=== PATIENT | male | born 1955 | race Caucasian/White ===

== ENCOUNTER 2018-03-10 07:19 | Inpatient (IN) | payer OTHER ==
[~2018-03-10] VITALS: Ht 193 cm; Wt 86.2 kg
--- NOTE | ~2018-03-10 | O ---
[facility] [place] [address] OPERATIVE REPORT Name: ELSI MARQUES Room #: 357-P [facility] IN M.R.#: [id number] Admission: 03/10/18 Attend Phys: Martina Haynes MD Discharge: Date of : 53 Report #: [id number] THIS REPORT FOR: //name// CC: Devyn Haynes DATE OF SERVICE: 03/13/2018 PREOPERATIVE DIAGNOSIS: Right foot metatarsal osteomyelitis. POSTOPERATIVE DIAGNOSIS: Right foot metatarsal osteomyelitis. PROCEDURE: Revision, right transmetatarsal amputation. SURGEON: Zechariah Fowler M.D. SOCIETY EDITOR: Deepa Jacobson PA-C. ANESTHESIA: LMA. TOURNIQUET TIME: 26 minutes. ESTIMATED BLOOD LOSS: 25 mL. COMPLICATIONS: None. SPECIMENS: None. CONDITION UPON LEAVING THE OPERATING ROOM: Stable. INDICATIONS FOR PROCEDURE: The patient is a 62-year-old gentleman who has had a previous right transmetatarsal amputation in April 2017. He had opening of the wound, has not been getting wound care since that time. This has not been improving and presented to our hospital actually in septic shock and was found to have osteomyelitis of the remainder of the metatarsals on MRI scan. After discussion with him including my recommendation for below-knee amputation, he elected for revision of the transmetatarsal amputation and hopes that this would heal without higher level amputation. DESCRIPTION OF PROCEDURE: Risks, benefits, alternatives and complications were discussed in detail with the patient including but not limited to risk of continued infection, bleeding, need for higher level amputation. Informed consent was obtained from the patient. The right foot was appropriately marked in the preoperative holding area. IV Zosyn was given for preoperative antibiotics. He was brought to the operating room and placed in the supine position on the operating room table. LMA anesthesia was induced without [facility] [address] [place] [address] OPERATIVE REPORT Name: ELSI MARQUES Room #: 357-P [facility] IN ..#: [id number] Admission: 03/10/18 Attend Phys: Martina Haynes MD Discharge: Date of : 53 Report #: [id number] complication. Tourniquet was placed on the right thigh. Right lower extremity was prepped and draped in normal sterile fashion. Timeout was performed properly identifying the patient, procedure as well as instrumentation. All in the operating room were in agreement. Right lower extremity was elevated, tourniquet inflated. Tourniquet time was 26 minutes. There essentially was a large covering of granulation tissue over the palpable remainder of the metatarsals. This was dissected out with a combination of Bovie cautery and sharply with #10 blade. The open incision was extended medially and laterally in a fish-mouth type incision in order to gain mobilization of the skin flap. After dissecting circumferentially around the metatarsals, the skin was held back and the metatarsals were amputated at a higher level, approximately 2 inches from the previous amputation level with a sagittal saw. This was removed. The wound was then thoroughly irrigated with normal saline. This left plenty of skin tissue and soft tissue for coverage of the end of what remained of the metatarsals. The skin edges were trimmed back sharply with 10 blade to bleeding edges. Tourniquet was deflated and hemostasis was obtained. A Hemovac drain was placed deep along the ends of the metatarsals and the skin was closed with 2-0 Vicryl and 3-0 nylon. Soft dressing of Adaptic, 4 x 4, Webril, Juan A wrap were applied. The patient tolerated this procedure well and went to recovery room under care of anesthesia postoperatively. <ELECTRONICALLY SIGNED> By: Zechariah Fowler MD 03/15/18 1507 [id number] Zechariah Fowler MD /nt
--- NOTE | ~2018-03-10 | HC ---
[facility] [place] [address] CONSULTATION Name: ELSI MAQRUES Room #: 357-P ADM IN ..#: [id number] Admission: 03/10/18 Attend Phys: Martina Haynes MD Discharge: Date of : 53 Report #: [id number] THIS REPORT FOR: //name// CC: Devyn Haynes DATE OF SERVICE: 03/11/2018 CHIEF COMPLAINT: Right foot infection. HISTORY OF PRESENT ILLNESS: This is a 62-year-old male patient admitted to the hospital with an infection involving his right foot. 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 He developed infection in his toes and underwent a transmetatarsal amputation in 12/2016. 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 He was seen in the Emergency Department, was hypotensive and admitted for further evaluation and treatment. PAST MEDICAL HISTORY: Positive for history of a right foot infection, history of septic shock, previous laminectomy, left shoulder surgery. SOCIAL HISTORY: The patient admits to frequent alcohol use, some history of previous drug use, which he has discontinued and does smoke. FAMILY HISTORY: Noncontributory. REVIEW OF SYSTEMS: CONSTITUTIONAL: The patient denies fever, chills or weight loss currently. ENT: The patient denies earache, nasal drainage, sore throat. CARDIOVASCULAR: The patient denies chest pain, palpitation or diaphoresis. PULMONARY: The patient denies cough, shortness of breath. GASTROINTESTINAL: The patient denies nausea, vomiting, diarrhea or abdominal pain. ORTHOPEDIC: The patient complains of some drainage from his right foot. Other systems in a 14-point review of systems are negative. PHYSICAL EXAMINATION: VITAL SIGNS: At this time include pulse 51, respiratory rate of 19, blood pressure 125/70, temperature 98.2. GENERAL: This is a chronically ill-appearing male patient who appears to be in minimal distress. HEENT: Head normocephalic. Nose and throat are clear. NECK: Supple. LUNGS: Clear. HEART: Regular rhythm. ABDOMEN: Bowel sounds present. [facility] [address] [place] [address] CONSULTATION Name: ELSI MARQUES Room #: 357-P ADM IN .R.#: [id number] Admission: 03/10/18 Attend Phys: Martina Haynes MD Discharge: Date of : 53 Report #: [id number] EXTREMITIES: Lower extremities demonstrate palpable, but somewhat diminished distal pulses. He has an open transmetatarsal amputation of the right foot. The base is clean and granulating. However, there is drainage. There is edema of the foot and bogginess to palpation. NEUROLOGIC: The patient is alert, does move all 4 extremities spontaneously. LABORATORY DATA: Includes sodium 141, potassium 3.6, chloride 111, CO2 of 20, BUN 10, creatinine 0.8, glucose of 92. CRP is markedly elevated at 72.6, albumin 3.7. White blood cell count 6.9, hemoglobin 10.9. Sed rate is 60. Arterial Doppler demonstrates atherosclerotic disease, but no evidence of high grade stenosis. MRI of the foot is ordered and pending. X-ray demonstrates postoperative changes from recent mid foot amputation, mild irregularity at the distal stump of the first, second and third metatarsals that is compatible with healing; however, cannot exclude osteomyelitis. CLINICAL IMPRESSION: Right foot infection with previous transmetatarsal amputation and possible underlying osteomyelitis. RECOMMENDATIONS: We will check an MRI. He has been started on intravenous antibiotic therapy empirically pending cultures. He very well may require surgical bony debridement. Recommend aggressive nutritional support to maximize wound healing. I think once we have evaluated for the possibility of osteomyelitis and considered surgical intervention, he may benefit from tissue substitute over the open portion of his foot. He will need protection and offloading along the way. I appreciate being asked to see him in consultation. <ELECTRONICALLY SIGNED> By: Reza Adam MD 03/12/18 1552 [id number] Reza Adam MD /nt
--- NOTE | ~2018-03-10 | HC ---
[facility] [place] [address] CONSULTATION Name: ELSI MARQUES Room #: 357-P ADM IN M.R.#: [id number] Admission: 03/10/18 Attend Phys: Martina Haynes MD Discharge: Date of : 53 Report #: [id number] THIS REPORT FOR: //name// CC: Devyn Haynes DATE OF SERVICE: 03/12/2018 REASON FOR CONSULTATION: Right foot osteomyelitis. HISTORY OF PRESENT ILLNESS: The patient is a 62-year-old gentleman who has had osteomyelitis of his right foot in the past. He had a transmetatarsal amputation in last April and has had issues with his wound since that time. He has been on, on and off, antibiotics and presented to the hospital here with concerns for sepsis. Wound care had been consulted and they have asked us to evaluate for possible higher level amputation. PAST MEDICAL HISTORY: Significant for right foot infection, septic shock, laminectomy and left shoulder surgery. SOCIAL HISTORY: Drinks alcohol frequently, some history of previous drug abuse. He does smoke. CURRENT MEDICATIONS: Have been reviewed and on the chart. PHYSICAL EXAMINATION: Examination of the right foot shows him to have a transmetatarsal amputation with an open wound on the distal stump. There is no significant drainage from this; however, there is a large amount of granulation tissue. There is no exposed bone. IMAGING: X-ray and MRI scan have been reviewed and shows osteomyelitis of the remainder of the metatarsal bones that are left in his amputation stump. ASSESSMENT: Right foot transmetatarsal amputation with residual osteomyelitis. PLAN: I had a long discussion today with the patient regarding treatment options. My recommendation for him is a below-knee amputation as I think this would give him the best chance for healing and function. However, he is interested in one more chance at salvage of his foot or the remainder of his foot. He is asking for a resection of the remainder of the metatarsals and an attempt at primary closure of the wound. I discussed with him that I do not think that this will be successful and he will have continued wound problems from this, but he is insistent that we try this treatment first. I have put him on the operating room schedule for tomorrow morning at 8:30 for a revision of this transmetatarsal amputation with resection of the remainder of his metatarsals in an attempt at primary wound closure. We discussed the fact that [address] [address] CONSULTATION Name: ELSI MARQUES Clara Room #: 357-P [facility] IN .R.#: [id number] Admission: 03/10/18 Attend Phys: Martina Haynes MD Discharge: Date of : 53 Report #: [id number] we may need to put a wound VAC on this to aid in healing and he has understanding of this. We will make him n.p.o. after midnight. He is understanding and wished to proceed. Thank you for allowing us to participate in the care of the patient. <ELECTRONICALLY SIGNED> By: Zechariah Fowler MD 03/15/18 1507 [id number] [id number] Zechariah Fowler MD /nt
[~2018-03-10 07:19] MED LIST: VALIUM2 MG PO; ZOFRAN ODT4 MG PO
[2018-03-10 07:23] VITALS: BP 87/45
[2018-03-10 08:27] LABS: ABSOLUTE NEUTROPHILS 7.3 thou/uL (1.4-8.2); BASOPHILS 1.2 % (0.0-2.0); EOSINOPHILS 4.8 % (0.0-3.0); HEMATOCRIT 40.1 % (42.0-52.0); HEMOGLOBIN 13.6 gm/dL (14.0-18.0); LYMPHOCYTES 13.2 % (24.0-44.0); MCH 27.7 pg (26.0-34.0); MCHC 33.9 g/dL (28.0-37.0); MCV 81.7 fL (80.0-100.0); PLATELET COUNT 440 thou/uL (150-400); POLYS 72.8 % (36.0-66.0); RBC 4.91 mil/uL (4.50-6.00); RDW 16.6 % (10.5-14.5)
[2018-03-10 08:35] LABS: CALCIUM 9.2 mg/dL (8.5-10.1); POTASSIUM 3.3 mmol/L (3.5-5.1)
[2018-03-10 08:41] LABS: ALBUMIN 3.7 g/dL (3.4-5.0); DIRECT BILIRUBIN 0.2 mg/dL (<0.1-0.3); TOTAL BILIRUBIN 0.5 mg/dL (<0.1-1.0); TOTAL PROTEIN 8.6 g/dL (6.4-8.2)
[2018-03-10] MEDS ORDERED: ALEVE220 MG PO (10:37)
[2018-03-10 14:14] LABS: URINE BILIRUBIN NEGATIVE (Negative); URINE BLOOD NEGATIVE (Negative); URINE CLARITY CLEAR; URINE COLOR YELLOW; URINE GLUCOSE-RANDOM* NEGATIVE (Negative); URINE KETONES NEGATIVE (Negative); URINE LEUKOCYTES NEGATIVE (Negative); URINE NITRITE NEGATIVE (Negative); URINE PROTEIN (DIPSTICK) NEGATIVE (Negative); URINE SPECIFIC GRAVITY <= 1.005 (1.005-1.035); URINE UROBILINOGEN 0.2 E.U./dl (0.2-1.0)
[2018-03-10 15:03] VITALS: BP 105/66
[2018-03-10 16:15] VITALS: BP 105/61
[2018-03-10 16:41] VITALS: BP 100/56
[2018-03-10 19:34] VITALS: BP 108/65
[2018-03-11 04:44] VITALS: BP 74/47
[2018-03-11 05:47] LABS: ABSOLUTE NEUTROPHILS 4.1 thou/uL (1.4-8.2); BASOPHILS 1.6 % (0.0-2.0); EOSINOPHILS 8.1 % (0.0-3.0); HEMATOCRIT 33.3 % (42.0-52.0); LYMPHOCYTES 20.7 % (24.0-44.0); MCH 27.2 pg (26.0-34.0); MCHC 32.8 g/dL (28.0-37.0); MONOCYTES 9.9 % (1.0-8.0); POLYS 59.7 % (36.0-66.0); RBC 4.01 mil/uL (4.50-6.00); RDW 16.7 % (10.5-14.5); WBC 6.9 thou/uL (4.0-11.0)
[2018-03-11 05:56] LABS: HEMOGLOBIN 10.9 gm/dL (14.0-18.0); PLATELET COUNT 265 thou/uL (150-400)
[2018-03-11 06:04] LABS: CALCIUM 8.3 mg/dL (8.5-10.1); CREATININE 0.8 mg/dL (0.7-1.3); POTASSIUM 3.6 mmol/L (3.5-5.1)
[2018-03-11 06:41] VITALS: BP 111/70
[2018-03-11 07:22] VITALS: BP 104/57
[2018-03-11 11:08] VITALS: BP 102/60
[2018-03-11 15:21] VITALS: BP 107/69
[2018-03-11 19:28] VITALS: BP 125/73
[2018-03-12 04:00] VITALS: BP 123/76
[2018-03-12 07:08] VITALS: BP 121/73
[2018-03-12 12:05] VITALS: BP 137/82
[2018-03-12 15:13] VITALS: BP 142/95
[2018-03-12 19:22] VITALS: BP 128/76
[2018-03-13] VITALS (9 sets, daily range): BP systolic 97–130; BP diastolic 64–87
[2018-03-13 23:28] LABS: HEMATOCRIT 35.3 % (42.0-52.0); HEMOGLOBIN 11.6 gm/dL (14.0-18.0)
[2018-03-14 03:45] VITALS: BP 110/64
[2018-03-14 05:23] LABS: HEMATOCRIT 33.8 % (42.0-52.0); MCH 26.9 pg (26.0-34.0); MCHC 32.4 g/dL (28.0-37.0); MCV 83.1 fL (80.0-100.0); RBC 4.07 mil/uL (4.50-6.00); RDW 16.4 % (10.5-14.5); WBC 8.7 thou/uL (4.0-11.0)
[2018-03-14 05:32] LABS: CALCIUM 8.4 mg/dL (8.5-10.1); POTASSIUM 3.7 mmol/L (3.5-5.1)
[2018-03-14 15:57] VITALS: BP 128/82
[2018-03-14 19:35] VITALS: BP 96/52
[2018-03-15] VITALS: BP 140/99
[2018-03-15 04:31] VITALS: BP 115/68
[2018-03-15 07:14] VITALS: BP 116/76
[2018-03-15 12:00] VITALS: BP 101/49
[2018-03-15 16:00] VITALS: BP 119/74
[2018-03-15 22:13] VITALS: BP 127/102
[2018-03-16 07:20] VITALS: BP 97/54
[2018-03-16 07:46] LABS: ABSOLUTE NEUTROPHILS 3.6 thou/uL (1.4-8.2); BASOPHILS 1.4 % (0.0-2.0); EOSINOPHILS 8.4 % (0.0-3.0); HEMOGLOBIN 10.3 gm/dL (14.0-18.0); MCH 27.1 pg (26.0-34.0); MCHC 32.4 g/dL (28.0-37.0); MCV 83.8 fL (80.0-100.0); MONOCYTES 10.6 % (1.0-8.0); PLATELET COUNT 332 thou/uL (150-400); POLYS 51.6 % (36.0-66.0); RBC 3.81 mil/uL (4.50-6.00); RDW 16.7 % (10.5-14.5)
[2018-03-16 08:01] LABS: CALCIUM 9.1 mg/dL (8.5-10.1); CREATININE 0.9 mg/dL (0.7-1.3); POTASSIUM 3.9 mmol/L (3.5-5.1)
[2018-03-16] MEDS ORDERED: PERCOCET PO (08:46)
[2018-03-16] MEDS ORDERED: AUGMENTIN 875-1 EACH PO (08:46)
[2018-03-16] MEDS ORDERED: LEVAQUIN 500 M500 M2 PO (08:53)
[2018-03-16 11:50] VITALS: BP 97/54
[2018-03-16 12:34] VITALS: BP 97/54
== END 2018-03-16 15:00 | disposition home or self-care (01) | DRG 475 ==
LOC: ER 07:19 → EROBS 11:04 → 3W 11:04 → SICU 03-15 19:18 → ENTRNSPT 03-16 14:41 → EDTRNSPTSTS 03-16 14:45 → SICU 03-16 15:00
PROVIDERS: Emergency Medicine; Internal Medicine; Internal Medicine Geriatric Medicine
PROC: 0Y6M0Z9 Detachment at Right Foot, Partial 1st Ray, Open Approach (ICD-10-PCS; principal; 2018-03-13)
DX: T87.43 Infection of amputation stump, right lower extremity (principal); M86.671 Other chronic osteomyelitis, right ankle and foot; M86.8X7 Other osteomyelitis, ankle and foot; D62 Acute posthemorrhagic anemia; F17.210 Nicotine dependence, cigarettes, uncomplicated; E87.6 Hypokalemia; I95.9 Hypotension, unspecified; F10.20 Alcohol dependence, uncomplicated; E11.69 Type 2 diabetes mellitus with other specified complication; B96.5 Pseudomonas (aeruginosa) (mallei) (pseudomallei) as the cause of diseases classified elsewhere; E11.42 Type 2 diabetes mellitus with diabetic polyneuropathy; B95.62 Methicillin resistant Staphylococcus aureus infection as the cause of diseases classified elsewhere; Y90.9 Presence of alcohol in blood, level not specified; Y83.8 Other surgical procedures as the cause of abnormal reaction of the patient, or of later complication, without mention of misadventure at the time of the procedure; Y92.89 Other specified places as the place of occurrence of the external cause; Z89.431 Acquired absence of right foot
CPT/HCPCS: 10879; 15002; 50010; 50101; 50386; 50951; 53078; 56525; 56527; 56528; 57091; 57103; 62110; 62900; 70005

== ENCOUNTER 2021-06-27 23:59 | Emergency (ER) | payer OTHER ==
[~2021-06-27] VITALS: Ht 193 cm; Wt 104.3 kg
--- NOTE | ~2021-06-27 | EMS ---
[facility] [address] [place] [address] EMS Patient Care Report Name: ELSI MARQUES [id number] Admission: 06/27/21 Attend Phys: Discharge: Date of : 53 Report #: [id number] THIS REPORT FOR: //name// Report Transmitted: 06/27/2021 23:42 EMS Care Summary [place], [place]/[facility] Incident [phone] @ 06/27/2021 23:33 Incident Location [address] [place] [address] Patient ELSI MARQUES Male, 66 Years 1955 Patient Address [address], [place] [address] Patient History Amputee, Chief Complaint WEAKNESS Disposition Transported No Lights/Humble Dispatch Reason Sick Person Transported To [facility] Narrative M537 ARRIVED ON SCENE TO FIND A 66YO MALE SITTING UPRIGHT IN HIS WHEELCHAIR OUTSIDE OF HIS RESIDENCE DRINKING A BOTTLE OF BOURBON. PT STATES THAT HE FEELS WEAK AND WANTS TO GO TO THE HOSPITAL. PT STATES HIS DOCTOR CALLED HIM TONIGHT THAT HE HAS ABNORMAL LABS AND NEEDS TO GO TO THE ER. PT WOULD NOT PROVIDE ANY FURTHER INFORMATION ABOUT LAB RESULTS OR MEDICAL HISTORY. PT WAS TRANSFERRED FROM HIS WHEELCHAIR TO THE STRETCHER AND LOADED INTO THE AMBULANCE. PT VITALS ASSESSED ON SCENE. WHILE ENROUTE TO ED PT REFUSED TO ANSWER QUESTIONS ABOUT MEDICAL HISTORY OR MEDICATIONS AND STATED THAT "I JUST WANT TO " AND TO TAKE [facility] [address] [place] [address] EMS Patient Care Report Name: ELSI MARQUES Room #: REG [facility]..#: [id number] Admission: 06/27/21 Attend Phys: Discharge: Date of : 53 Report #: [id number] HIM TO THE HOSPITAL INSTEAD OF TALKING. PT STATES THAT HE HAS BEEN DRINKING TONIGHT BUT WOULD NOT SPECIFY HOW MUCH ALCOHOL HE HAS INGESTED. PTS SPEECH CONTINUALLY BECAME MORE SLURRED WHILE ENROUTE. UPON ARRIVAL TO ED PT WAS BROUGHT INTO ER AND VERBAL REPORT GIVEN TO RN. PT BROUGHT TO ROOM 10 AND TRANSFERRED TO HOSPITAL BED. PT CARE TRANSFERRED. LARON SIGNED AT HOSPITAL REGARDING PTS SI STATEMENTS. M537 RETURN IN SERVICE. Initial Vitals @23:46P: 66,BP: 126/74,CO: 5,SpO2: 94, @23:43P: 70,R: 16,BP: 108/72,Pain: 0/10,GCS: 15,SpO2: 96,Revised Trauma: 12, Assessments @23:41MENTAL:Place Oriented,Event Oriented,Person Oriented,Time Oriented,SKIN:HEENT:LUNG SOUNDS:ABDOMEN:PELVIS//GI:EXTREMITIES:Right Leg: Other,PULSE:NEURO: Impression Generalized Weakness Procedures @23:41 ALS Assessment Response: UnchangedSucceeded @23:43 Stretcher Response: Unchanged Timeline 23:30,Call Received 23:30,Dispatch Notified 23:33,Dispatched 23:34,En Route 23:40,On Scene 23:41,At Patient 23:41,ALS Assessment,Response: UnchangedSucceeded, 23:43,BP: 108/72 M,PULSE: 70,RR: 16 R,SPO2: 96 Ox,ETCO2: ,BG: ,PAIN: 0,GCS: 15, 23:43,Stretcher,Response: Unchanged 23:46,BP: 126/74 M,PULSE: 66,RR: R,SPO2: 94 Ox,ETCO2: ,BG: ,PAIN: ,GCS: , 23:47,Depart Scene 00:06,At Destination 00:25,Call Closed Disclaimer v1.1 Copyright 2020 [employer] This EMS Care Summary contains data elements from the applicable legal record (which may be displayed differently). It is designed to provide pertinent information for the following purposes: continuity of care, clinical quality, [address] [address] EMS Patient Care Report Name: ELSI MARQUES Room #: REG Lalo#: [id number] Admission: 06/27/21 Attend Phys: Discharge: Date of : 53 Report #: [id number] and state data reporting. The complete legal record is available to ED staff and administrators of the receiving hospital in [employer]'s Patient Tracker. All data is provided "as is."
[~2021-06-27 23:59] MED LIST changes: +ALEVE220 MG PO; +AUGMENTIN 875-1 EACH PO; +LEVAQUIN 500 M500 M2 PO; +PERCOCET PO
[2021-06-28 01:06] LABS: ABSOLUTE NEUTROPHILS 5.8 thou/uL (1.4-8.2); BASOPHILS 1.1 % (0.0-2.0); HEMOGLOBIN 15.2 gm/dL (14.0-18.0); LYMPHOCYTES 27.3 % (24.0-44.0); MCH 29.7 pg (26.0-34.0); MCHC 33.1 g/dL (28.0-37.0); MCV 89.7 fL (80.0-100.0); MONOCYTES 5.8 % (1.0-8.0); PLATELET COUNT 314 thou/uL (150-400); POLYS 62.8 % (36.0-66.0); RBC 5.13 mil/uL (4.50-6.00); RDW 14.3 % (10.5-14.5); WBC 9.2 thou/uL (4.0-11.0)
[2021-06-28 01:10] LABS: ANION GAP 14 mmol/L (7-16); BUN 23 mg/dL (7-18); CALCIUM 8.6 mg/dL (8.5-10.1); CHLORIDE 105 mmol/L (98-107); CO2 22 mmol/L (21-32); GLUCOSE 63 mg/dL (74-106); POTASSIUM 3.8 mmol/L (3.5-5.1); SODIUM 141 mmol/L (136-145)
[2021-06-28 01:16] LABS: ALBUMIN 3.8 g/dL (3.4-5.0); SALICYLATE < 2.8 mg/dL (2.8-20.0); SGOT 28 U/L (15-37); SGPT 22 U/L (16-63); TOTAL BILIRUBIN 0.7 mg/dL (0.2-1.0)
[2021-06-28 05:46] VITALS: BP 107/61
[2021-06-28 05:54] LABS: URINE BILIRUBIN NEGATIVE (Negative); URINE BLOOD NEGATIVE (Negative); URINE CLARITY CLEAR; URINE COLOR YELLOW; URINE GLUCOSE-RANDOM* NEGATIVE (Negative); URINE KETONES 1+ (Negative); URINE LEUKOCYTES-REFLEX NEGATIVE (Negative); URINE NITRITE-REFLEX NEGATIVE (Negative); URINE PROTEIN (DIPSTICK) NEGATIVE (Negative); URINE SPECIFIC GRAVITY >= 1.030 (1.005-1.035); URINE UROBILINOGEN 0.2 E.U./dl (0.2-1.0)
[2021-06-28 06:03] LABS: AMP/METHAMP POSITIVE (Negative); BARBITURATES Negative (Negative); BENZODIAZEPINES Negative (Negative); COCAINE Negative (Negative); METHADONE Negative (Negative); OPIATES Negative (Negative); PCP Negative (Negative)
--- NOTE | 2021-06-28 09:58 | EKG ---
[address] [address] ELECTROCARDIOGRAM REPORT Name: ELSI MARQUES [id number] Admission: 06/27/21 Attend Phys: Discharge: 06/28/21 Date of : 53 Report #: [id number] [facility] ED Test Date: 2021-06-28 Test Time: 00:47:48 Pat Name: ELSI MARQUES Department: Room: Gender: M Chief Executive Officer: : 1955 Requested By: Luci Medel Order Number: [id number] MD: Dav Vicente Measurements Intervals [place] Rate: 71 P: 9 OK: 216 QRS: 45 QRSD: 92 T: 21 QT: 413 QTc: 449 Interpretive Statements Sinus rhythm Borderline prolonged OK interval Baseline wander in lead(s) V1 No previous ECG available for comparison Electronically Signed On 06-28-2021 9:57:56 TRANSPORTATION INSPECTOR by Dav Vicente [email or web address] <ELECTRONICALLY SIGNED> By: Dav Vicente MD 06/28/21 0957 0047 0047 Dav Vicente MD /EPI
== END 2021-06-28 05:47 | disposition home or self-care (01) ==
LOC: ER 23:59
PROVIDERS: Emergency Medicine
DX: F10.129 Alcohol abuse with intoxication, unspecified (principal); Z20.822 Contact with and (suspected) exposure to COVID-19; M25.511 Pain in right shoulder; F17.210 Nicotine dependence, cigarettes, uncomplicated; F15.10 Other stimulant abuse, uncomplicated; Z90.89 Acquired absence of other organs; Z98.890 Other specified postprocedural states; W07.XXXA Fall from chair, initial encounter; Y93.89 Activity, other specified; Y92.89 Other specified places as the place of occurrence of the external cause; Y99.8 Other external cause status

== ENCOUNTER 2021-07-24 20:10 | Emergency (ER) | payer OTHER | END 2021-07-24 23:09 | disposition left against medical advice (07) | LOC: ER 20:10 | DX: F10.129 Alcohol abuse with intoxication, unspecified (principal); Z53.21 Procedure and treatment not carried out due to patient leaving prior to being seen by health care provider ==